=== PATIENT | female | born 1950 | race African-American/Black ===

== ENCOUNTER 2019-06-02 10:01 | Emergency (ER) | payer OTHER ==
[~2019-06-02] VITALS: Ht 162.6 cm; Wt 117.0 kg
[2019-06-02 10:11] VITALS: Ht 162.6 cm; Wt 117.0 kg
[2019-06-02 16:53] VITALS: BP 155/97
== END 2019-06-02 16:28 | disposition home or self-care (01) ==
LOC: ED 10:01
DX: L25.8 Unspecified contact dermatitis due to other agents (principal); T42.6X5A Adverse effect of other antiepileptic and sedative-hypnotic drugs, initial encounter; R19.7 Diarrhea, unspecified; R11.10 Vomiting, unspecified; R53.1 Weakness; Z88.0 Allergy status to penicillin; Z88.8 Allergy status to other drugs, medicaments and biological substances; Y92.89 Other specified places as the place of occurrence of the external cause
CPT/HCPCS: J2930